=== PATIENT | male | born 1965 | race African-American/Black ===

== ENCOUNTER 2017-05-17 12:33 | Emergency (ER) | payer MEDICARE, OTHER ==
[~2017-05-17] VITALS: Ht 195.6 cm; Wt 143.0 kg
[2017-05-17] MEDS ORDERED: SERT25TA PO (12:39)
[2017-05-17] MEDS ORDERED: INSULIN (12:39)
[2017-05-17] MEDS ORDERED: LISI2.5T PO (12:40)
[2017-05-17] MEDS ORDERED: LEVO25TA4 PO (12:40)
[2017-05-17] MEDS ORDERED: GLIM1TAB2 PO (12:40)
[2017-05-17] MEDS ORDERED: SODIUM CHLORIDE 0.9% 1,000 ML IV ONE (12:44)
[2017-05-17] MEDS ORDERED: MORPHINE SULFATE 4 MG/ML, 1ML IVPush PRN (13:00)
[2017-05-17] MEDS ORDERED: ONDANSETRON 2MG/ML, 2ML IVPush ONE (13:00)
[2017-05-17] MEDS ORDERED: LORazepam 2 MG/ML, 1ML IVPush ONE (13:00)
[2017-05-17 13:17] LABS: ASPARTATE AMINO TRANSFERASE 11 U/L (15-37); BLOOD UREA NITROGEN 7 mg/dL (7-18)
[2017-05-17 13:21] LABS: IS PT STATUS REG ER OR PRE ER? YES
[2017-05-17 15:15] VITALS: BP 136/83
== END 2017-05-17 15:17 | disposition home or self-care (01) ==
LOC: ED 14:25
DX: E10.649 Type 1 diabetes mellitus with hypoglycemia without coma (principal); I10 Essential (primary) hypertension; E07.9 Disorder of thyroid, unspecified
CPT/HCPCS: 36415; 70450; 71010; 80053; 82962; 84484; 85025; 85610; 96361; 96374; 96375; 99285; J2060; J2405; J7030; 93005